=== PATIENT | female | born 1955 | race Caucasian/White ===

== ENCOUNTER 2021-07-01 17:48 | Inpatient (IN) | payer BC, OTHER ==
[~2021-07-01] VITALS: Ht 165.1 cm; Wt 57.2 kg
[2021-07-01] MEDS ORDERED: SODIUM CHLORIDE 0.9% 500 ML IV ONE (20:15)
[2021-07-01 21:24] LABS: Basophils # (auto) 0 10 ^3/uL (0-0.2); Basophils % (auto) 0.4 % (0.0-2.0); Eosinophils # (auto) 0.2 10 ^3/uL (0-0.8); Eosinophils % (auto) 1.7 % (0.0-7.0); Hematocrit 39.3 % (36.0-46.0); Hemoglobin 13.2 g/dL (12.2-16.2); Lymphocytes # (auto) 2.2 10 ^3/uL (0.4-5.4); Lymphocytes % (auto) 24.8 % (10.0-50.0); Mean Corpuscular Hemoglobin 30.1 pg (28.0-32.0); Mean Corpuscular Hgb Conc. 33.6 g/dL (32.0-36.0); Mean Corpuscular Volume 89.5 fL (80.0-100.0); Monocytes # (auto) 0.5 10 ^3/uL (0-1.3); Monocytes % (auto) 5.7 % (0.0-12.0); Neutrophils # (auto) 5.9 10 ^3/uL (1.6-8.6); Neutrophils % (auto) 67.4 % (37.0-80.0); Nucleated Red Blood Cells % 0.1 %; Red Blood Cells 4.39 10^6/uL (4.0-5.20); Red Cell Distribution Width 12.7 % (11.8-14.3); White Blood Cell 8.8 10^3/uL (4.4-10.8)
[2021-07-01 21:42] LABS: Albumin 3.6 g/dL (3.4-5.0); Anion Gap 4 (5-15); Blood Urea Nitrogen 12 mg/dL (7-18); Calcium 8.5 mg/dL (8.5-10.1); Carbon Dioxide 30 mmol/L (21-32); Chloride 107 mmol/L (98-107); Glucose 78 mg/dL (74-106); Sodium 141 mmol/L (136-145)
[2021-07-01 21:48] LABS: Alanine Aminotransferase 18 U/L (13-56); Alkaline Phosphatase 129 U/L (45-117); Aspartate Aminotransferase 13 U/L (15-37); BUN/Creatinine Ratio 17.4; Bilirubin, Total 0.9 mg/dL (0.2-1.0); GFR African American 111 mL/min; GFR Non-African American 91 mL/min; Total Protein 7.2 g/dL (6.4-8.2)
[2021-07-01 22:05] LABS: Potassium 2.9 mmol/L (3.5-5.1)
[2021-07-01] MEDS ORDERED: IOHEXOL 300 MG/ML 100ML BOTTLE IJ ONE (22:19)
[2021-07-01] MEDS ORDERED: POTASSIUM EFFERVESENT TAB 25 MEQ PO ONE (22:30)
[2021-07-01 22:34] LABS: INR 1.1 (0.9-1.15); Partial Thromboplastin Time 27.4 sec (23.6-33.0)
[2021-07-01] MEDS ORDERED: POTASSIUM EFFERVESENT TAB 25 MEQ ONE (22:35)
[2021-07-02] VITALS (7 sets, daily range): BP systolic 124–147; BP diastolic 62–88
[2021-07-02] MEDS ORDERED: ATENOLOL 25 MG TAB PO ONE (02:45)
[2021-07-02] MEDS ORDERED: AMITRIPTYLINE HCL 25 MG TAB PO ONE (02:45)
[2021-07-02] MEDS ORDERED: amLODIPine BESYLATE 5 MG TAB PO ONE (03:00)
[2021-07-02] MEDS ORDERED: HYDROcodone-ACET 5/325MG TAB PO PRN ×2 (04:00→06:15)
[2021-07-02] MEDS ORDERED: DOCUSATE SOD 100 MG CAP PO PRN (04:00)
[2021-07-02] MEDS ORDERED: MORPHINE SULF INJ 2 MG/ML SYRINGE 1ML IV PRN ×2 (04:00→06:15)
[2021-07-02] MEDS ORDERED: ACETAMINOPHEN 325 MG TAB PO PRN ×2 (04:00→06:15)
[2021-07-02] MEDS ORDERED: ONDANSETRON HCL 4 MG/2 ML VIAL IV PRN ×2 (04:00→06:15)
[2021-07-02] MEDS ORDERED: NITROGLYCERIN 0.4 MG SL TAB SL PRN ×2 (04:00→06:15)
[2021-07-02] MEDS ORDERED: hydrALAZINE HCL 20 MG/ML VL IV PRN ×2 (04:00→06:15)
[2021-07-02] MEDS ORDERED: TEMAZEPAM 15 MG CAP PO PRN ×2 (04:00→06:15)
[2021-07-02] MEDS ORDERED: AML5T PO (06:45)
[2021-07-02] MEDS ORDERED: ATOR10TA52 PO (06:45)
[2021-07-02] MEDS ORDERED: [UNRECOGNIZED DRUG - CODE] PO (06:45)
[2021-07-02] MEDS ORDERED: AMIT10TA8 PO (06:45)
[2021-07-02] MEDS ORDERED: ASCO500T11 PO (06:45)
[2021-07-02] MEDS ORDERED: ZINC220C8 PO (06:45)
[2021-07-02] MEDS ORDERED: CHOL20007 PO ×2 (06:45→10:11)
[2021-07-02] MEDS ORDERED: ATEN25TA PO (06:45)
[2021-07-02] MEDS ORDERED: POTA10TA51 PO (06:45)
[2021-07-02] MEDS ORDERED: ASCORBIC ACID 500 MG TAB PO SCH (10:00)
[2021-07-02] MEDS ORDERED: amLODIPine BESYLATE 5 MG TAB PO SCH (10:00)
[2021-07-02] MEDS ORDERED: MULTIPLE VITAMIN TAB PO SCH (10:00)
[2021-07-02] MEDS ORDERED: ZINC SULFATE 220mg CAP or TAB PO SCH (10:00)
[2021-07-02] MEDS ORDERED: ENOXAPARIN SOD 40 MG/0.4 ML SYRINGE SC SCH (10:00)
[2021-07-02] MEDS: ENOXAPARIN SOD 40 MG/0.4 ML SYRINGE SC SCH (10:15)
[2021-07-02] MEDS: MULTIPLE VITAMIN TAB PO SCH (10:16)
[2021-07-02] MEDS: ASCORBIC ACID 500 MG TAB PO SCH ×2 (10:16→21:22)
[2021-07-02] MEDS: ZINC SULFATE 220mg CAP or TAB PO SCH (10:16)
[2021-07-02] MEDS: amLODIPine BESYLATE 5 MG TAB PO SCH (10:16)
[2021-07-02 10:18] LABS: Basophils # (auto) 0 10 ^3/uL (0-0.2); Basophils % (auto) 0.3 % (0.0-2.0); Eosinophils # (auto) 0.3 10 ^3/uL (0-0.8); Eosinophils % (auto) 2.9 % (0.0-7.0); Hematocrit 37.6 % (36.0-46.0); Hemoglobin 12.8 g/dL (12.2-16.2); Lymphocytes # (auto) 1.8 10 ^3/uL (0.4-5.4); Mean Corpuscular Hemoglobin 30.3 pg (28.0-32.0); Mean Corpuscular Volume 89.2 fL (80.0-100.0); Monocytes # (auto) 0.6 10 ^3/uL (0-1.3); Monocytes % (auto) 6.1 % (0.0-12.0); Neutrophils # (auto) 6.5 10 ^3/uL (1.6-8.6); Neutrophils % (auto) 70.7 % (37.0-80.0); Nucleated Red Blood Cells % 0.1 %; Red Blood Cells 4.22 10^6/uL (4.0-5.20); Red Cell Distribution Width 12.9 % (11.8-14.3); White Blood Cell 9.3 10^3/uL (4.4-10.8)
[2021-07-02 10:22] LABS: Albumin 3.5 g/dL (3.4-5.0); Calcium 8.7 mg/dL (8.5-10.1)
[2021-07-02 10:26] LABS: BUN/Creatinine Ratio 14.3; Bilirubin, Total 1.1 mg/dL (0.2-1.0)
[2021-07-02] MEDS ORDERED: POTASSIUM CHL 20 Meq TABLET PO ONE (11:30)
[2021-07-02 12:19] LABS: INR 1.13 (0.9-1.15); Partial Thromboplastin Time 29.1 sec (23.6-33.0)
[2021-07-02 12:29] LABS: Thyroid Stimulating Hormone 1.86 uIU/mL (0.358-3.74)
[2021-07-02] MEDS: METHOCARBAMOL 500 MG TAB PO SCH ×3 (13:31→21:23)
[2021-07-02] MEDS ORDERED: AMITRIPTYLINE HCL 25 MG TAB PO SCH ×2 (22:00)
[2021-07-03] VITALS (7 sets, daily range): BP systolic 92–152; BP diastolic 50–96
[2021-07-03] MEDS: METHOCARBAMOL 500 MG TAB PO SCH ×3 (06:00→14:23)
[2021-07-03 09:17] LABS: Free T4 (Free Thyroxine) 1.01 ng/dL (0.89-1.76)
[2021-07-03 09:18] LABS: Folate (Folic Acid) 21.27 ng/mL (5.38-24)
[2021-07-03] MEDS: MULTIPLE VITAMIN TAB PO SCH (09:34)
[2021-07-03] MEDS: amLODIPine BESYLATE 5 MG TAB PO SCH (09:34)
[2021-07-03] MEDS: ASCORBIC ACID 500 MG TAB PO SCH ×2 (09:34→21:55)
[2021-07-03] MEDS: ZINC SULFATE 220mg CAP or TAB PO SCH (09:35)
[2021-07-03] MEDS: ENOXAPARIN SOD 40 MG/0.4 ML SYRINGE SC SCH (09:35)
[2021-07-03] MEDS: DOCUSATE SOD 100 MG CAP PO PRN ×2 (09:49→21:56)
[2021-07-03] MEDS ORDERED: CHOLECALCIFEROL (VITD3) 2,000 UNIT CAP/TAB PO ONE (13:30)
[2021-07-03] MEDS ORDERED: AMITRIPTYLINE HCL 25 MG TAB PO SCH ×2 (22:00)
[2021-07-04 04:59] VITALS: BP 145/76
[2021-07-04 08:41] VITALS: BP 156/87
[2021-07-04] MEDS: amLODIPine BESYLATE 5 MG TAB PO SCH (09:50)
[2021-07-04] MEDS: ZINC SULFATE 220mg CAP or TAB PO SCH (09:50)
[2021-07-04] MEDS: MULTIPLE VITAMIN TAB PO SCH (09:50)
[2021-07-04] MEDS: ENOXAPARIN SOD 40 MG/0.4 ML SYRINGE SC SCH (09:51)
[2021-07-04] MEDS: ASCORBIC ACID 500 MG TAB PO SCH (09:51)
[2021-07-04] MEDS ORDERED: CHOLECALCIFEROL (VITD3) 2,000 UNIT CAP/TAB PO SCH (10:00)
[2021-07-04] MEDS ORDERED: LORazepam 2MG/ML-1ML VIAL IV ONE (11:45)
[2021-07-04 12:54] VITALS: BP 155/81
[2021-07-04 13:36] VITALS: BP 135/89
== END 2021-07-04 17:10 | disposition home or self-care (01) | DRG 558 ==
LOC: ER 17:50 → TELE-WESTW 07-02 04:07 → ER 07-02 05:34
PROVIDERS: ADMIT Nurse Practitioner Family; ATTEND Family Medicine
DX: M75.101 Unspecified rotator cuff tear or rupture of right shoulder, not specified as traumatic (principal); Z20.822 Contact with and (suspected) exposure to COVID-19; E87.6 Hypokalemia; F32.9 Major depressive disorder, single episode, unspecified; I10 Essential (primary) hypertension; M06.9 Rheumatoid arthritis, unspecified; M19.011 Primary osteoarthritis, right shoulder; Z96.653 Presence of artificial knee joint, bilateral; E66.9 Obesity, unspecified; G47.33 Obstructive sleep apnea (adult) (pediatric); M77.8 Other enthesopathies, not elsewhere classified; M19.012 Primary osteoarthritis, left shoulder; M75.91 Shoulder lesion, unspecified, right shoulder; S40.022A Contusion of left upper arm, initial encounter; Z80.3 Family history of malignant neoplasm of breast; Z82.49 Family history of ischemic heart disease and other diseases of the circulatory system; Z86.16 Personal history of COVID-19; Z79.899 Other long term (current) drug therapy; Z68.21 Body mass index [BMI] 21.0-21.9, adult; X58.XXXA Exposure to other specified factors, initial encounter; Y93.89 Activity, other specified; Y92.89 Other specified places as the place of occurrence of the external cause; Y99.8 Other external cause status
CPT/HCPCS: 36415; 72141; 73201; 73218; 80053; 82607; 82746; 83520; 83615; 84439; 84443; 84484; 85025; 85246; 85302; 85305; 85306; 85379; 85576; 85610; 85652; 85730; 86225; 86235; 86256; 87426; 93971; 94660; 96360; G0378